=== PATIENT | male | born 1995 | race Caucasian/White ===

== ENCOUNTER 2018-06-23 01:25 | Emergency (ER) | payer MEDICAID ==
[~2018-06-23] VITALS: Ht 182.9 cm; Wt 104.8 kg
[2018-06-23 01:30] VITALS: Ht 182.9 cm; Wt 104.8 kg
[2018-06-23 02:23] VITALS: BP 126/78
== END 2018-06-23 02:23 | disposition home or self-care (01) ==
LOC: ED 01:25
DX: R07.89 Other chest pain (principal)
CPT/HCPCS: J1885; Q0092